=== PATIENT | male | born 1955 | race Caucasian/White ===

== ENCOUNTER 2017-03-01 20:14 | Emergency (ER) | payer BC ==
[~2017-03-01] VITALS: Ht 190.5 cm; Wt 153.1 kg
[~2017-03-01 20:14] MED LIST: ALLOPURINOL300 MG PO; AMLODIPINE BESYL5 MG PO; ASPIRIN E.C.81 M1 PO; BP MED; CHOLESTEROL MED; CLONAZEPAM0.5 MG PO; JUICE PLUS PO; LEVAQUIN750 MG PO; LOSARTAN-HCTZ1 EAC1 PO; NEXIUM40 MG PO; PERCOCET 5/31 TABLET PO; PHENERGAN25 MG PR; PRAVASTATIN SOD40 MG PO; WATER PILL; ZOFRAN ODT4 MG PO
[2017-03-01 21:28] VITALS: BP 163/95
== END 2017-03-01 21:29 | disposition home or self-care (01) ==
LOC: RME 20:14 → EME 20:14 → RME 21:29
DX: R20.2 Paresthesia of skin (principal); I10 Essential (primary) hypertension; E78.5 Hyperlipidemia, unspecified; K21.9 Gastro-esophageal reflux disease without esophagitis
CPT/HCPCS: 93005; 99281; 99283